=== PATIENT | male | born 1980 | race Caucasian/White ===

== ENCOUNTER 2016-12-19 10:44 | Emergency (ER) | payer BC ==
--- NOTE | 2016-12-19 11:58 | ER Document Report ---
ED Wound - General Chief Complaint: Wound Infection Stated Complaint: FOOT PAIN Time Seen by Provider: 12/19/16 10:58 Mode of Arrival: Ambulatory Information source: Patient Notes: -year-old male presents to ED for fungal infection to the right foot with a rash to the left foot. He states started on both feet 30 days ago. He states he has been on antibiotics and antifungal medicines and steroids for the last 10 days from his primary care doctor. He states he finished all of his medicines yesterday but has had increased pain and swelling the day. He states that his primary care doctor [facility] sent him to the emergency room for evaluation and treatment. TRAVEL OUTSIDE OF THE [place] IN LAST 30 DAYS: No - HPI Patient complains to provider of: Other - Fungal infection of bilateral feet. Occurred: Other - 30 day Onset/Duration: Worse Quality of pain: Burning, Sharp Severity: Moderate Pain Level: 4 Skin Color: Other - Red excoriated Capillary refill: < 3 seconds Sensations intact: Yes Distal pulses present: Yes Associated Symptoms: Drainage, Redness, Swelling - Related Data Allergies/Adverse Reactions: No Known Allergies Allergy (Verified 12/19/16 10:48) Past Medical History - General Information source: Patient - Social History Smoking Status: Current Every Day Smoker Cigarette use (# per day): Yes - 8-10 cig Chew tobacco use (# tins/day): No Smoking Education Provided: Yes - less than 2 min Frequency of alcohol use: Heavy - 4 beer daily Drug Abuse: None Occupation: electronics computer mechanic Lives with: Spouse/Significant other Family History: DM Patient has suicidal ideation: No Patient has homicidal ideation: No - Past Medical History Cardiac Medical History: Reports: None Pulmonary Medical History: Reports: None EENT Medical History: Reports: None Neurological Medical History: Reports: None Endocrine Medical History: Reports: None Renal/ Medical History: Reports: None Malignancy Medical History: Reports None GI Medical History: Reports: None Musculoskeltal Medical History: Reports None Skin Medical History: Reports None Psychiatric Medical History: Reports: None Traumatic Medical History: Reports: None Infectious Medical History: Reports: None Surgical Hx: Negative Past Surgical History: Reports: None Review of Systems - Review of Systems Constitutional: No symptoms reported EENT: No symptoms reported Cardiovascular: No symptoms reported Respiratory: No symptoms reported Gastrointestinal: No symptoms reported Genitourinary: No symptoms reported Male Genitourinary: No symptoms reported Musculoskeletal: No symptoms reported Skin: Other - erythema excoriated fungal infection top of right foot with peeling of skin under toes, rash to left foot Hematologic/Lymphatic: No symptoms reported Neurological/Psychological: No symptoms reported -: Yes All other systems reviewed and negative Physical Exam - Vital signs Vitals: Temp Pulse Resp BP Pulse Ox 98.6 F 86 14 154/94 H 99 12/19/16 10:48 12/19/16 10:48 12/19/16 10:48 12/19/16 10:48 12/19/16 10:48 Interpretation: Normal - General General appearance: Appears well, Alert - HEENT Head: Normocephalic, Atraumatic Eyes: Normal Pupils: PERRL - Respiratory Respiratory status: No respiratory distress Chest status: Nontender Breath sounds: Normal Chest palpation: Normal - Cardiovascular Rhythm: Regular Heart sounds: Normal auscultation Murmur: No - Abdominal Inspection: Normal Distension: No distension Bowel sounds: Normal Tenderness: Nontender Organomegaly: No organomegaly - Back Back: Normal, Nontender - Extremities General upper extremity: Normal inspection, Nontender, Normal color, Normal ROM , Normal temperature General lower extremity: Normal ROM, Normal temperature, Normal weight bearing. No: Stephie's sign Foot: Tender, Edema, No evidence of FB, Other - Erythematous excoriation weeping fungal infection. No: Abrasion, Deformity, Ecchymosis, Instability, Laceration, Metatarsal compress. pain, Puncture wound, Tender 5th metatarsal - Neurological Neuro grossly intact: Yes Cognition: Normal Orientation: AAOx4 [place] Coma Scale Eye Opening: Spontaneous [place] Coma Scale Verbal: Oriented [place] Coma Scale Motor: Obeys Commands [place] Coma Scale Total: 15 Speech: Normal Motor strength normal: LUE, RUE, LLE, RLE Sensory: Normal - Psychological Associated symptoms: Normal affect, Normal mood - Skin Skin Temperature: Warm Skin Moisture: Dry Skin Color: Normal Location of irregularity: Extremities - Dorsal right foot,, Other - Rash to the left foot, peeling skin to the bottom of the right foot Character of irregularity: Erythematous Irregularity with: Swelling, Tenderness, Warmth, Inflammation, Weeping Course - Re-evaluation Re-evalutation: 12/19/16 12:23 Dr. Mohr, reviewed medications he has already taken an what the assessment was at this time. Will start patient on Mycolog. I consult to Dr. Jacqueline Loo and she will see the patient Friday at 330. Patient discharged home with appointment for 330 on Friday. - Vital Signs Vital signs: Temp Pulse Resp BP Pulse Ox 98.6 F 86 14 154/94 H 99 12/19/16 10:48 12/19/16 10:48 12/19/16 10:48 12/19/16 10:48 12/19/16 10:48 Discharge - Discharge Clinical Impression: Tinea pedis Qualifiers: Laterality: bilateral Qualified Code(s): B35.3 - Tinea pedis Condition: Stable Disposition: HOME, SELF-CARE Additional Instructions: You were seen today for a fungal infection to your feet. You need to keep your feet clean and dry frequent changing of socks light colored socks. A antifungal cream Mycolog will be ordered for you please follow directions on the tube. You have been scheduled an appointment with Dr. Jacqueline Loo on FridayDecember 23 at 3:30 PM. The doctor's office stated they will call you tomorrow at the number you gave me [phone] FOLLOW-UP CARE: If you have been referred to a physician for follow-up care, call the physician s office for an appointment as you were instructed or within the next two days. If you experience worsening or a significant change in your symptoms, notify the physician immediately or return to the Emergency Department at any time for re-evaluation. Prescriptions: Nystatin/Triamcin [Mycolog-II Ointment 15 gm] 15 applic TP BID #2 tube Forms: Smoking Cessation Education, Return to Work, Elevated Blood Pressure Referrals: ASTER FARRIS DPM [ACTIVE STAFF] - 12/23/16 3:30 pm
[2016-12-19] MEDS ORDERED: NYSTATIN/TRIAMCIN OINTMENT 15 GM TP ONE (12:04)
[2016-12-19 12:40] VITALS: BP 144/89
--- NOTE | 2016-12-19 19:00 | ER Document Report ---
Doctor's Note Notes: 12/19/16 18:59 patient was seen and evaluated at bedside on request of the nurse practitioner, physical exam findings are consistent with likely impetigo, topical mupirocin ointment was recommended as treatment, this plan was discussed with patient who acknowledges understanding and agreement
== END 2016-12-19 12:30 | disposition home or self-care (01) ==
LOC: ER 10:44
DX: B35.3 Tinea pedis (principal); M79.672 Pain in left foot; R21 Rash and other nonspecific skin eruption; F17.210 Nicotine dependence, cigarettes, uncomplicated
CPT/HCPCS: 99283; J3490